=== PATIENT | male | born 1945 | race Caucasian/White ===

== ENCOUNTER 2017-07-13 11:55 | Inpatient (IN) | payer MEDICARE, MEDICAID ==
[~2017-07-13] VITALS: Ht 180.3 cm; Wt 146.1 kg
[2017-07-13 16:55] VITALS: BP 109/63
[2017-07-13] MEDS ORDERED: ACETAMINOPHEN 325 MG TABLET PO PRN (17:00)
[2017-07-13] MEDS ORDERED: DOCUSATE SODIUM 283 MG/5 ML MINI-ENEMA PR PRN (17:00)
[2017-07-13] MEDS ORDERED: ALBUTEROL SULFATE 2.5 MG/0.5 ML NEB SOLUTION NEB PRN (17:15)
[2017-07-13] MEDS ORDERED: MAGNESIUM HYDROXIDE SUSPENSION 30 ML UDCUP PO PRN (17:15)
[2017-07-13] MEDS ORDERED: IPRATROPIUM BROMIDE 0.5 MG/2.5 ML NEB SOLUTION NEB PRN (17:15)
[2017-07-13] MEDS: OXYGEN THERAPY IH SCH (20:00)
[2017-07-13 20:52] LABS: APPEARANCE,URINE TURBID (CLEAR); BILIRUBIN,URINE NEGATIVE (NEGATIVE); GLUCOSE, URINE (UA) NEGATIVE (NEGATIVE); KETONES,URINE NEGATIVE (NEGATIVE); LEUKOCYTE ESTERASE ,URINE LARGE (NEGATIVE); OCCULT BLOOD,URINE TRACE (NEGATIVE); PROTEIN,URINE POS 1+ (NEGATIVE)
[2017-07-13 20:59] LABS: BACTERIA,URINE Many /HPF (None Seen); NITRATE,URINE POSITIVE (NEGATIVE); SQUAMOUS EPITHELIAL CELL,UR Few /LPF (None Seen); WBC,URINE >100 /HPF (0-5)
[2017-07-13] MEDS ORDERED: DOCUSATE SODIUM 100 MG CAPSULE PO SCH (21:00)
[2017-07-13] MEDS: ATORVASTATIN CALCIUM 40 MG TABLET PO SCH (21:11)
[2017-07-13] MEDS: SENNA 187 MG TABLET PO SCH (21:11)
[2017-07-13] MEDS: LACTOBAC ACID/BULG/BIFID/THERM TABLET PO SCH (21:11)
[2017-07-13] MEDS: METOPROLOL TARTRATE 25 MG TABLET PO SCH (21:11)
[2017-07-13] MEDS: PANTOPRAZOLE SODIUM 40 MG DR TABLET PO SCH (21:11)
[2017-07-13] MEDS: MINERAL OIL/PETROLATUM,WHITE PF 3.5 GM OPHTHALMIC OINTMENT OU SCH (21:12)
[2017-07-13 22:15] VITALS: BP 115/62
[2017-07-13] MEDS: TERAZOSIN HCL 5 MG CAPSULE PO SCH (22:43)
[2017-07-13] MEDS: POTASSIUM PHOS/SODIUM PHOS MIXTURE 1 POWDER PACKET PO SCH (22:43)
[2017-07-14 00:44] VITALS: BP 122/67
[2017-07-14] MEDS ORDERED: PNEUMOCOCCAL VACCINE POLYVALENT 0.5 ML VIAL [PPSV23] IM ONE (02:15)
[2017-07-14 07:10] VITALS: BP 120/84
[2017-07-14 07:39] LABS: BASOPHILS % (AUTO) 0.4 % (0.0-2.0); HEMATOCRIT 34.5 % (41-53); HEMOGLOBIN 11.1 g/dL (13.5-17.5); LYMPHOCYTES # (AUTO) 1.1 K/uL (1.0-4.8); LYMPHOCYTES % (AUTO) 13.4 % (22.0-44.0); MEAN CORPUSCULAR HGB CONC 32.3 G/dL (31.0-37.0); MEAN CORPUSCULAR VOLUME 90 fL (80-100); MONOCYTES # (AUTO) 0.7 K/uL (0.1-1.0); MONOCYTES % (AUTO) 8.6 % (2.0-9.0); NEUTROPHILS % (AUTO) 75.6 % (40.0-70.0); PLATELET COUNT (AUTO) 155 K/uL (150-450); RED BLOOD CELL COUNT(AUTO) 3.84 MIL/uL (4.50-5.90); RED CELL DISTRIBUTION WIDTH 18.7 % (11.5-14.5)
[2017-07-14 07:55] LABS: ALANINE AMINOTRANSFERASE 44 U/L (12-78); ALBUMIN 2.5 g/dL (3.4-5.0); ALKALINE PHOSPHATASE 142 U/L (46-116); ANION GAP 2 mmol/L (8-16); ASPARTATE AMINOTRANSFERASE 28 U/L (15-37); BILIRUBIN,TOTAL 0.4 mg/dL (0.1-1.0); CALCIUM, TOTAL 8.9 mg/dL (8.8-10.5); CARBON DIOXIDE 36 mmol/L (22-29); CHLORIDE 105 mmol/L (98-107); CREATININE 0.69 mg/dL (0.60-1.30); GLOMERULAR FILTR. RATE CALC > 60 mL/min (>60); GLUCOSE,RANDOM 107 mg/dL (70-110); PHOSPHORUS 4.1 mg/dL (2.5-4.9); POTASSIUM 3.7 mmol/L (3.5-5.1); SODIUM SERUM 143 mmol/L (136-145); THYROID STIMULATING HORMONE 1.39 uIU/mL (0.36-3.74); UREA NITROGEN, BLOOD 18 mg/dL (7-18)
[2017-07-14] MEDS: DOCUSATE SODIUM 250 MG CAPSULE PO SCH ×3 (09:00→20:32)
[2017-07-14] MEDS: LACTOBAC ACID/BULG/BIFID/THERM TABLET PO SCH ×2 (09:01→20:32)
[2017-07-14] MEDS: POTASSIUM PHOS/SODIUM PHOS MIXTURE 1 POWDER PACKET PO SCH ×2 (09:01→20:31)
[2017-07-14] MEDS: OXYGEN THERAPY IH SCH ×2 (09:01→20:31)
[2017-07-14] MEDS: MINERAL OIL/PETROLATUM,WHITE PF 3.5 GM OPHTHALMIC OINTMENT OU SCH ×2 (09:01→20:32)
[2017-07-14] MEDS: AcetaZOLAMIDE 250 MG TABLET PO SCH (09:02)
[2017-07-14] MEDS: ASPIRIN 81 MG CHEWABLE TABLET PO SCH (09:02)
[2017-07-14] MEDS: FUROSEMIDE 40 MG TABLET PO SCH (09:02)
[2017-07-14] MEDS: PANTOPRAZOLE SODIUM 40 MG DR TABLET PO SCH ×2 (09:03→20:32)
[2017-07-14] MEDS: PredniSONE 5 MG TABLET PO SCH (09:03)
[2017-07-14] MEDS: FLUTICASONE/VILANTEROL 200-25 MCG/INH INHALER [14] IH SCH (09:03)
[2017-07-14] MEDS: METOPROLOL TARTRATE 25 MG TABLET PO SCH ×2 (09:03→20:32)
[2017-07-14] MEDS: CLOPIDOGREL BISULFATE 75 MG TABLET PO SCH (09:03)
[2017-07-14] MEDS: TAMSULOSIN HCL 0.4 MG CAPSULE PO SCH (09:03)
[2017-07-14] MEDS: TIOTROPIUM BROMIDE 18 MCG/INH HANDIHALER [5] IH SCH (09:04)
[2017-07-14 11:50] LABS: ABG A-A DIFF O2 96.6 mmHg (10-20.0); ABG BASE EXCESS 9.6 mmol/L (-2.0-3.0); ABG CARBOXYHEMOGLOBIN 0.8 % (0.0-1.5); ABG HCO3 31.5 mmol/L (22.0-26.0); ABG METHEMOGLOBIN 0.1 % (0.0-1.5); ABG OXYGEN CONTENT 15.9 mL/dL (15.0-23.0); ABG OXYGEN SATURATION 96.1 % (95.0-98.0); ABG OXYHEMOGLOBIN 95.2 % (94.0-100.0); ABG PCO2 64 mmHg (35-45); ABG PH 7.357 (7.35-7.450); ABG TOTAL HEMOGLOBIN 11.8 G/dL (12.0-18.0); PO2, ARTERIAL BG 85.8 mmHg (75.0-83.0); SOURCE, BLOOD GAS ARTERIAL; TEMPERATURE, FAHRENHEIT, BG 98.6 FAHREN (96.0-98.6)
[2017-07-14 11:51] LABS: SITE, BLOOD GAS LFT RADIAL
[2017-07-14 11:52] LABS: O2 DEVICE,BLOOD GAS CANNULA (ROOM AIR)
[2017-07-14] MEDS: ENOXAPARIN SODIUM 30 MG/0.3 ML PF SYRINGE SQ SCH ×2 (14:36→20:32)
[2017-07-14 15:53] VITALS: BP 114/68
[2017-07-14] MEDS: TERAZOSIN HCL 5 MG CAPSULE PO SCH (20:32)
[2017-07-14] MEDS: SENNA 187 MG TABLET PO SCH (20:32)
[2017-07-14] MEDS: ATORVASTATIN CALCIUM 40 MG TABLET PO SCH (20:32)
[2017-07-14 20:39] VITALS: BP 104/56
[2017-07-15] VITALS: BP 109/65
[2017-07-15 07:50] VITALS: BP 111/62
[2017-07-15] MEDS: OXYGEN THERAPY IH SCH ×2 (08:59→20:22)
[2017-07-15] MEDS: MINERAL OIL/PETROLATUM,WHITE PF 3.5 GM OPHTHALMIC OINTMENT OU SCH ×2 (09:00→20:23)
[2017-07-15] MEDS: CLOPIDOGREL BISULFATE 75 MG TABLET PO SCH (09:00)
[2017-07-15] MEDS: TIOTROPIUM BROMIDE 18 MCG/INH HANDIHALER [5] IH SCH (09:00)
[2017-07-15] MEDS: DOCUSATE SODIUM 250 MG CAPSULE PO SCH ×3 (09:00→20:23)
[2017-07-15] MEDS: LACTOBAC ACID/BULG/BIFID/THERM TABLET PO SCH ×2 (09:00→20:22)
[2017-07-15] MEDS: FLUTICASONE/VILANTEROL 200-25 MCG/INH INHALER [14] IH SCH (09:00)
[2017-07-15] MEDS: ENOXAPARIN SODIUM 30 MG/0.3 ML PF SYRINGE SQ SCH ×2 (09:00→20:22)
[2017-07-15] MEDS: POTASSIUM PHOS/SODIUM PHOS MIXTURE 1 POWDER PACKET PO SCH ×2 (09:01→20:22)
[2017-07-15] MEDS: AcetaZOLAMIDE 250 MG TABLET PO SCH (09:01)
[2017-07-15] MEDS: ASPIRIN 81 MG CHEWABLE TABLET PO SCH (09:01)
[2017-07-15] MEDS: FUROSEMIDE 40 MG TABLET PO SCH (09:01)
[2017-07-15] MEDS: PANTOPRAZOLE SODIUM 40 MG DR TABLET PO SCH ×2 (09:01→20:23)
[2017-07-15] MEDS: METOPROLOL TARTRATE 25 MG TABLET PO SCH ×2 (09:01→20:23)
[2017-07-15] MEDS: TAMSULOSIN HCL 0.4 MG CAPSULE PO SCH (09:01)
[2017-07-15] MEDS: PredniSONE 5 MG TABLET PO SCH (09:01)
[2017-07-15 15:49] VITALS: BP 108/77
[2017-07-15] MEDS: ATORVASTATIN CALCIUM 40 MG TABLET PO SCH (20:22)
[2017-07-15] MEDS: SENNA 187 MG TABLET PO SCH (20:22)
[2017-07-15] MEDS: TERAZOSIN HCL 5 MG CAPSULE PO SCH (20:22)
[2017-07-16 00:15] VITALS: BP 110/67
[2017-07-16 07:10] VITALS: BP 104/66
[2017-07-16] MEDS: TIOTROPIUM BROMIDE 18 MCG/INH HANDIHALER [5] IH SCH (08:08)
[2017-07-16] MEDS: OXYGEN THERAPY IH SCH ×2 (08:08→21:33)
[2017-07-16] MEDS: ENOXAPARIN SODIUM 30 MG/0.3 ML PF SYRINGE SQ SCH ×2 (08:08→21:42)
[2017-07-16] MEDS: AcetaZOLAMIDE 250 MG TABLET PO SCH (08:08)
[2017-07-16] MEDS: METOPROLOL TARTRATE 25 MG TABLET PO SCH ×2 (08:08→21:43)
[2017-07-16] MEDS: TAMSULOSIN HCL 0.4 MG CAPSULE PO SCH (08:09)
[2017-07-16] MEDS: FUROSEMIDE 40 MG TABLET PO SCH (08:09)
[2017-07-16] MEDS: MINERAL OIL/PETROLATUM,WHITE PF 3.5 GM OPHTHALMIC OINTMENT OU SCH ×2 (08:09→21:43)
[2017-07-16] MEDS: PANTOPRAZOLE SODIUM 40 MG DR TABLET PO SCH ×2 (08:09→21:42)
[2017-07-16] MEDS: LACTOBAC ACID/BULG/BIFID/THERM TABLET PO SCH ×2 (08:09→21:43)
[2017-07-16] MEDS: POTASSIUM PHOS/SODIUM PHOS MIXTURE 1 POWDER PACKET PO SCH ×2 (08:09→21:43)
[2017-07-16] MEDS: ASPIRIN 81 MG CHEWABLE TABLET PO SCH (08:09)
[2017-07-16] MEDS: CLOPIDOGREL BISULFATE 75 MG TABLET PO SCH (08:09)
[2017-07-16] MEDS: FLUTICASONE/VILANTEROL 200-25 MCG/INH INHALER [14] IH SCH (08:10)
[2017-07-16] MEDS: PredniSONE 5 MG TABLET PO SCH (08:10)
[2017-07-16] MEDS: DOCUSATE SODIUM 250 MG CAPSULE PO SCH ×2 (08:12→21:00)
[2017-07-16 16:26] VITALS: BP 118/59
[2017-07-16] MEDS: WATER IV SCH (17:16)
[2017-07-16] MEDS: CEFOTETAN DISODIUM IV SCH (17:16)
[2017-07-16] MEDS: DEXTROSE 5% IV SCH (17:16)
[2017-07-16] MEDS ORDERED: CEFOTETAN DISODIUM IV SCH (18:00)
[2017-07-16] MEDS ORDERED: WATER IV SCH (18:00)
[2017-07-16] MEDS ORDERED: DEXTROSE 5% IV SCH (18:00)
[2017-07-16] MEDS: SENNA 187 MG TABLET PO SCH (21:00)
[2017-07-16] MEDS: ATORVASTATIN CALCIUM 40 MG TABLET PO SCH (21:42)
[2017-07-16 21:43] VITALS: BP 119/60
[2017-07-16] MEDS: TERAZOSIN HCL 5 MG CAPSULE PO SCH (21:43)
[2017-07-16] MEDS: 0.9% SODIUM CHLORIDE 10 ML SYRINGE IVP SCH (23:20)
[2017-07-17 00:41] VITALS: BP 107/55
[2017-07-17] MEDS: CEFOTETAN DISODIUM IV SCH ×2 (05:58→17:44)
[2017-07-17] MEDS: DEXTROSE 5% IV SCH ×2 (05:58→17:44)
[2017-07-17] MEDS: WATER IV SCH ×2 (05:58→17:44)
[2017-07-17 08:07] VITALS: BP 116/68
[2017-07-17] MEDS: 0.9% SODIUM CHLORIDE 10 ML SYRINGE IVP SCH ×3 (08:26→23:21)
[2017-07-17] MEDS: LACTOBAC ACID/BULG/BIFID/THERM TABLET PO SCH ×2 (08:27→20:09)
[2017-07-17] MEDS: CLOPIDOGREL BISULFATE 75 MG TABLET PO SCH (08:27)
[2017-07-17] MEDS: ASPIRIN 81 MG CHEWABLE TABLET PO SCH (08:27)
[2017-07-17] MEDS: POTASSIUM PHOS/SODIUM PHOS MIXTURE 1 POWDER PACKET PO SCH ×2 (08:27→20:09)
[2017-07-17] MEDS: MINERAL OIL/PETROLATUM,WHITE PF 3.5 GM OPHTHALMIC OINTMENT OU SCH ×2 (08:27→20:10)
[2017-07-17] MEDS: PredniSONE 5 MG TABLET PO SCH (08:27)
[2017-07-17] MEDS: METOPROLOL TARTRATE 25 MG TABLET PO SCH ×2 (08:28→20:09)
[2017-07-17] MEDS: DOCUSATE SODIUM 250 MG CAPSULE PO SCH ×3 (08:28→20:08)
[2017-07-17] MEDS: AcetaZOLAMIDE 250 MG TABLET PO SCH (08:28)
[2017-07-17] MEDS: FUROSEMIDE 40 MG TABLET PO SCH (08:29)
[2017-07-17] MEDS: TIOTROPIUM BROMIDE 18 MCG/INH HANDIHALER [5] IH SCH (08:29)
[2017-07-17] MEDS: PANTOPRAZOLE SODIUM 40 MG DR TABLET PO SCH ×2 (08:29→20:09)
[2017-07-17] MEDS: TAMSULOSIN HCL 0.4 MG CAPSULE PO SCH (08:29)
[2017-07-17] MEDS: ENOXAPARIN SODIUM 30 MG/0.3 ML PF SYRINGE SQ SCH ×2 (08:29→20:08)
[2017-07-17] MEDS: FLUTICASONE/VILANTEROL 200-25 MCG/INH INHALER [14] IH SCH (08:30)
[2017-07-17] MEDS: OXYGEN THERAPY IH SCH ×2 (08:30→20:09)
[2017-07-17 15:38] VITALS: BP 95/54
[2017-07-17] MEDS: SENNA 187 MG TABLET PO SCH (20:08)
[2017-07-17] MEDS: TERAZOSIN HCL 5 MG CAPSULE PO SCH (20:09)
[2017-07-17] MEDS: ATORVASTATIN CALCIUM 40 MG TABLET PO SCH (20:09)
[2017-07-17 20:16] VITALS: BP 134/74
[2017-07-17 23:30] VITALS: BP 106/58
[2017-07-18] MEDS: DEXTROSE 5% IV SCH ×2 (05:50→17:25)
[2017-07-18] MEDS: WATER IV SCH ×2 (05:50→17:25)
[2017-07-18] MEDS: CEFOTETAN DISODIUM IV SCH ×2 (05:50→17:25)
[2017-07-18 08:30] VITALS: BP 109/43
[2017-07-18] MEDS: OXYGEN THERAPY IH SCH ×2 (08:51→20:37)
[2017-07-18] MEDS: 0.9% SODIUM CHLORIDE 10 ML SYRINGE IVP SCH ×3 (08:51→23:32)
[2017-07-18] MEDS: MINERAL OIL/PETROLATUM,WHITE PF 3.5 GM OPHTHALMIC OINTMENT OU SCH ×2 (08:52→20:38)
[2017-07-18] MEDS: METOPROLOL TARTRATE 25 MG TABLET PO SCH ×2 (08:52→20:37)
[2017-07-18] MEDS: TAMSULOSIN HCL 0.4 MG CAPSULE PO SCH (08:52)
[2017-07-18] MEDS: TIOTROPIUM BROMIDE 18 MCG/INH HANDIHALER [5] IH SCH (08:52)
[2017-07-18] MEDS: AcetaZOLAMIDE 250 MG TABLET PO SCH (08:53)
[2017-07-18] MEDS: CLOPIDOGREL BISULFATE 75 MG TABLET PO SCH (08:53)
[2017-07-18] MEDS: ASPIRIN 81 MG CHEWABLE TABLET PO SCH (08:53)
[2017-07-18] MEDS: POTASSIUM PHOS/SODIUM PHOS MIXTURE 1 POWDER PACKET PO SCH ×2 (08:53→20:38)
[2017-07-18] MEDS: LACTOBAC ACID/BULG/BIFID/THERM TABLET PO SCH ×2 (08:53→20:37)
[2017-07-18] MEDS: FUROSEMIDE 40 MG TABLET PO SCH (08:53)
[2017-07-18] MEDS: PredniSONE 5 MG TABLET PO SCH (08:53)
[2017-07-18] MEDS: PANTOPRAZOLE SODIUM 40 MG DR TABLET PO SCH ×2 (08:53→20:38)
[2017-07-18] MEDS: ENOXAPARIN SODIUM 30 MG/0.3 ML PF SYRINGE SQ SCH ×2 (08:54→20:39)
[2017-07-18] MEDS: DOCUSATE SODIUM 250 MG CAPSULE PO SCH ×2 (08:54→20:37)
[2017-07-18] MEDS: FLUTICASONE/VILANTEROL 200-25 MCG/INH INHALER [14] IH SCH (08:55)
[2017-07-18 15:25] VITALS: BP 100/66
[2017-07-18 18:13] LABS: C.DIFF GDH ANTIGEN, Stool Negative (Negative); C.DIFF TOXINS A&B, Stool Negative (Negative)
[2017-07-18] MEDS: TERAZOSIN HCL 5 MG CAPSULE PO SCH (20:37)
[2017-07-18] MEDS: ATORVASTATIN CALCIUM 40 MG TABLET PO SCH (20:38)
[2017-07-18] MEDS: SENNA 187 MG TABLET PO SCH (20:38)
[2017-07-18 23:58] VITALS: BP 109/54
[2017-07-19] MEDS: CEFOTETAN DISODIUM IV SCH ×2 (05:52→18:39)
[2017-07-19] MEDS: DEXTROSE 5% IV SCH ×2 (05:52→18:39)
[2017-07-19] MEDS: WATER IV SCH ×2 (05:52→18:39)
[2017-07-19 07:45] VITALS: BP 92/70
[2017-07-19] MEDS: METOPROLOL TARTRATE 25 MG TABLET PO SCH ×2 (08:26→20:03)
[2017-07-19] MEDS: POTASSIUM PHOS/SODIUM PHOS MIXTURE 1 POWDER PACKET PO SCH ×2 (08:33→20:02)
[2017-07-19] MEDS: AcetaZOLAMIDE 250 MG TABLET PO SCH (08:34)
[2017-07-19] MEDS: FUROSEMIDE 40 MG TABLET PO SCH (08:34)
[2017-07-19] MEDS: LACTOBAC ACID/BULG/BIFID/THERM TABLET PO SCH ×3 (08:34→20:03)
[2017-07-19] MEDS: MINERAL OIL/PETROLATUM,WHITE PF 3.5 GM OPHTHALMIC OINTMENT OU SCH ×2 (08:34→20:03)
[2017-07-19] MEDS: PredniSONE 5 MG TABLET PO SCH (08:34)
[2017-07-19] MEDS: PANTOPRAZOLE SODIUM 40 MG DR TABLET PO SCH ×2 (08:34→20:04)
[2017-07-19] MEDS: CLOPIDOGREL BISULFATE 75 MG TABLET PO SCH (08:35)
[2017-07-19] MEDS: TAMSULOSIN HCL 0.4 MG CAPSULE PO SCH (08:35)
[2017-07-19] MEDS: FLUTICASONE/VILANTEROL 200-25 MCG/INH INHALER [14] IH SCH (08:35)
[2017-07-19] MEDS: ASPIRIN 81 MG CHEWABLE TABLET PO SCH (08:35)
[2017-07-19] MEDS: TIOTROPIUM BROMIDE 18 MCG/INH HANDIHALER [5] IH SCH (08:35)
[2017-07-19] MEDS: ENOXAPARIN SODIUM 30 MG/0.3 ML PF SYRINGE SQ SCH ×2 (08:35→20:03)
[2017-07-19] MEDS: 0.9% SODIUM CHLORIDE 10 ML SYRINGE IVP SCH ×3 (08:36→23:15)
[2017-07-19] MEDS: OXYGEN THERAPY IH SCH ×2 (08:36→20:02)
[2017-07-19] MEDS: DOCUSATE SODIUM 250 MG CAPSULE PO SCH ×3 (08:37→20:04)
[2017-07-19 15:30] VITALS: BP 121/96
[2017-07-19] MEDS: ATORVASTATIN CALCIUM 40 MG TABLET PO SCH (20:03)
[2017-07-19] MEDS: TERAZOSIN HCL 5 MG CAPSULE PO SCH (20:03)
[2017-07-19] MEDS: SENNA 187 MG TABLET PO SCH (20:04)
[2017-07-19 23:42] VITALS: BP 108/70
[2017-07-20] MEDS: CEFOTETAN DISODIUM IV SCH ×2 (05:48→17:11)
[2017-07-20] MEDS: DEXTROSE 5% IV SCH ×2 (05:48→17:11)
[2017-07-20] MEDS: WATER IV SCH ×2 (05:48→17:11)
[2017-07-20 07:53] VITALS: BP 99/52
[2017-07-20] MEDS: OXYGEN THERAPY IH SCH ×2 (08:35→20:06)
[2017-07-20] MEDS: 0.9% SODIUM CHLORIDE 10 ML SYRINGE IVP SCH ×3 (08:35→23:19)
[2017-07-20] MEDS: LACTOBAC ACID/BULG/BIFID/THERM TABLET PO SCH ×3 (08:36→20:06)
[2017-07-20] MEDS: POTASSIUM PHOS/SODIUM PHOS MIXTURE 1 POWDER PACKET PO SCH ×2 (08:36→20:07)
[2017-07-20] MEDS: AcetaZOLAMIDE 250 MG TABLET PO SCH (08:36)
[2017-07-20] MEDS: ASPIRIN 81 MG CHEWABLE TABLET PO SCH (08:36)
[2017-07-20] MEDS: FUROSEMIDE 40 MG TABLET PO SCH (08:36)
[2017-07-20] MEDS: PANTOPRAZOLE SODIUM 40 MG DR TABLET PO SCH ×2 (08:36→20:07)
[2017-07-20] MEDS: PredniSONE 5 MG TABLET PO SCH (08:36)
[2017-07-20] MEDS: TIOTROPIUM BROMIDE 18 MCG/INH HANDIHALER [5] IH SCH (08:37)
[2017-07-20] MEDS: TAMSULOSIN HCL 0.4 MG CAPSULE PO SCH (08:37)
[2017-07-20] MEDS: CLOPIDOGREL BISULFATE 75 MG TABLET PO SCH (08:37)
[2017-07-20] MEDS: ENOXAPARIN SODIUM 30 MG/0.3 ML PF SYRINGE SQ SCH ×2 (08:41→20:06)
[2017-07-20] MEDS: MINERAL OIL/PETROLATUM,WHITE PF 3.5 GM OPHTHALMIC OINTMENT OU SCH ×2 (08:42→20:07)
[2017-07-20] MEDS: METOPROLOL TARTRATE 25 MG TABLET PO SCH ×2 (08:42→20:12)
[2017-07-20] MEDS: DOCUSATE SODIUM 250 MG CAPSULE PO SCH ×2 (09:00→20:18)
[2017-07-20 15:31] VITALS: BP 121/66
[2017-07-20] MEDS: MetroNIDAZOLE 500 MG TABLET PO SCH ×2 (15:41→20:07)
[2017-07-20 19:59] VITALS: BP 114/64
[2017-07-20] MEDS: TERAZOSIN HCL 5 MG CAPSULE PO SCH (20:07)
[2017-07-20] MEDS: ATORVASTATIN CALCIUM 40 MG TABLET PO SCH (20:07)
[2017-07-20] MEDS: SENNA 187 MG TABLET PO SCH (20:18)
[2017-07-20 23:29] VITALS: BP 101/51
[2017-07-21] MEDS: DEXTROSE 5% IV SCH ×2 (05:16→17:52)
[2017-07-21] MEDS: WATER IV SCH ×2 (05:16→17:52)
[2017-07-21] MEDS: CEFOTETAN DISODIUM IV SCH ×2 (05:16→17:52)
[2017-07-21 07:10] VITALS: BP 116/73
[2017-07-21] MEDS: OXYGEN THERAPY IH SCH ×2 (08:23→20:06)
[2017-07-21] MEDS: TIOTROPIUM BROMIDE 18 MCG/INH HANDIHALER [5] IH SCH (08:24)
[2017-07-21] MEDS: 0.9% SODIUM CHLORIDE 10 ML SYRINGE IVP SCH ×3 (08:24→23:39)
[2017-07-21] MEDS: ENOXAPARIN SODIUM 30 MG/0.3 ML PF SYRINGE SQ SCH ×2 (08:25→20:07)
[2017-07-21] MEDS: LACTOBAC ACID/BULG/BIFID/THERM TABLET PO SCH ×3 (08:26→20:08)
[2017-07-21] MEDS: PredniSONE 5 MG TABLET PO SCH (08:26)
[2017-07-21] MEDS: METOPROLOL TARTRATE 25 MG TABLET PO SCH ×2 (08:26→20:08)
[2017-07-21] MEDS: ASPIRIN 81 MG CHEWABLE TABLET PO SCH (08:26)
[2017-07-21] MEDS: MINERAL OIL/PETROLATUM,WHITE PF 3.5 GM OPHTHALMIC OINTMENT OU SCH ×2 (08:26→20:07)
[2017-07-21] MEDS: FUROSEMIDE 40 MG TABLET PO SCH (08:26)
[2017-07-21] MEDS: CLOPIDOGREL BISULFATE 75 MG TABLET PO SCH (08:26)
[2017-07-21] MEDS: TAMSULOSIN HCL 0.4 MG CAPSULE PO SCH (08:26)
[2017-07-21] MEDS: MetroNIDAZOLE 500 MG TABLET PO SCH ×3 (08:26→20:08)
[2017-07-21] MEDS: POTASSIUM PHOS/SODIUM PHOS MIXTURE 1 POWDER PACKET PO SCH ×2 (08:26→20:07)
[2017-07-21] MEDS: AcetaZOLAMIDE 250 MG TABLET PO SCH (08:26)
[2017-07-21] MEDS: PANTOPRAZOLE SODIUM 40 MG DR TABLET PO SCH ×2 (08:26→20:07)
[2017-07-21 15:27] VITALS: BP 95/54
[2017-07-21] MEDS: ATORVASTATIN CALCIUM 40 MG TABLET PO SCH (20:07)
[2017-07-21] MEDS: TERAZOSIN HCL 5 MG CAPSULE PO SCH (20:07)
[2017-07-21 23:54] VITALS: BP 93/61
[2017-07-22] MEDS: WATER IV SCH (06:12)
[2017-07-22] MEDS: CEFOTETAN DISODIUM IV SCH (06:12)
[2017-07-22] MEDS: DEXTROSE 5% IV SCH (06:12)
[2017-07-22 06:57] VITALS: BP 97/69
[2017-07-22 07:28] VITALS: BP 100/49
[2017-07-22] MEDS: OXYGEN THERAPY IH SCH ×2 (08:13→20:15)
[2017-07-22] MEDS: 0.9% SODIUM CHLORIDE 10 ML SYRINGE IVP SCH ×3 (08:13→23:10)
[2017-07-22] MEDS: AcetaZOLAMIDE 250 MG TABLET PO SCH (08:14)
[2017-07-22] MEDS: MetroNIDAZOLE 500 MG TABLET PO SCH ×3 (08:14→20:16)
[2017-07-22] MEDS: LACTOBAC ACID/BULG/BIFID/THERM TABLET PO SCH ×3 (08:14→20:16)
[2017-07-22] MEDS: TAMSULOSIN HCL 0.4 MG CAPSULE PO SCH (08:14)
[2017-07-22] MEDS: ENOXAPARIN SODIUM 30 MG/0.3 ML PF SYRINGE SQ SCH ×2 (08:14→20:16)
[2017-07-22] MEDS: MINERAL OIL/PETROLATUM,WHITE PF 3.5 GM OPHTHALMIC OINTMENT OU SCH ×2 (08:15→20:16)
[2017-07-22] MEDS: POTASSIUM PHOS/SODIUM PHOS MIXTURE 1 POWDER PACKET PO SCH ×2 (08:15→20:16)
[2017-07-22] MEDS: TIOTROPIUM BROMIDE 18 MCG/INH HANDIHALER [5] IH SCH (08:15)
[2017-07-22] MEDS: ASPIRIN 81 MG CHEWABLE TABLET PO SCH (08:15)
[2017-07-22] MEDS: PANTOPRAZOLE SODIUM 40 MG DR TABLET PO SCH ×2 (08:15→20:16)
[2017-07-22] MEDS: PredniSONE 5 MG TABLET PO SCH (08:15)
[2017-07-22] MEDS: FUROSEMIDE 40 MG TABLET PO SCH (08:15)
[2017-07-22] MEDS: CLOPIDOGREL BISULFATE 75 MG TABLET PO SCH (08:15)
[2017-07-22] MEDS: METOPROLOL TARTRATE 25 MG TABLET PO SCH ×2 (08:16→20:16)
[2017-07-22 15:21] VITALS: BP 110/79
[2017-07-22 15:57] LABS: APPEARANCE,URINE CLEAR (CLEAR); BILIRUBIN,URINE NEGATIVE (NEGATIVE); GLUCOSE, URINE (UA) NEGATIVE (NEGATIVE); KETONES,URINE NEGATIVE (NEGATIVE); LEUKOCYTE ESTERASE ,URINE NEGATIVE (NEGATIVE); NITRATE,URINE NEGATIVE (NEGATIVE); OCCULT BLOOD,URINE NEGATIVE (NEGATIVE); PH,URINE 7.5 (5.0-8.0); PROTEIN,URINE NEGATIVE (NEGATIVE); UROBILINOGEN,URINE 0.2 mg/dL (<=1.0)
[2017-07-22 16:34] LABS: BACTERIA,URINE Few /HPF (None Seen); RBC,URINE 0-2 /HPF (0-2)
[2017-07-22 16:35] LABS: RENAL EPITHELIAL CELLS,URINE Rare /LPF (None Seen); SQUAMOUS EPITHELIAL CELL,UR Few /LPF (None Seen)
[2017-07-22] MEDS ORDERED: BUDE10.2 IH (16:53)
[2017-07-22] MEDS ORDERED: ALBU8.5H8 IH (16:53)
[2017-07-22] MEDS ORDERED: ASPI-1182 PO (16:53)
[2017-07-22] MEDS ORDERED: FURO20 PO (16:53)
[2017-07-22] MEDS ORDERED: ZOLP5 PO (16:53)
[2017-07-22] MEDS ORDERED: RIVA20TA PO (16:53)
[2017-07-22] MEDS ORDERED: ALBU8HFA IH (16:53)
[2017-07-22] MEDS ORDERED: AZEL137S8 NASAL (16:53)
[2017-07-22] MEDS ORDERED: TIOT185 IH (16:53)
[2017-07-22 20:08] VITALS: BP 101/53
[2017-07-22] MEDS: ATORVASTATIN CALCIUM 40 MG TABLET PO SCH (20:16)
[2017-07-22] MEDS: TERAZOSIN HCL 5 MG CAPSULE PO SCH (20:16)
[2017-07-22 23:39] VITALS: BP 104/56
[2017-07-22] MEDS ORDERED: DEXTROSE 5% IV SCH (23:59)
[2017-07-22] MEDS ORDERED: WATER IV SCH (23:59)
[2017-07-22] MEDS ORDERED: CEFOTETAN DISODIUM IV SCH (23:59)
[2017-07-23 06:33] LABS: BASOPHILS % (AUTO) 0.6 % (0.0-2.0); EOSINOPHILS % (AUTO) 1.3 % (1.0-6.0); HEMATOCRIT 31.5 % (41-53); HEMOGLOBIN 10.2 g/dL (13.5-17.5); LYMPHOCYTES # (AUTO) 1.4 K/uL (1.0-4.8); LYMPHOCYTES % (AUTO) 13.4 % (22.0-44.0); MEAN CORPUSCULAR HEMOGLOBIN 28.9 pg (26.0-34.0); MEAN CORPUSCULAR HGB CONC 32.4 G/dL (31.0-37.0); MEAN CORPUSCULAR VOLUME 89 fL (80-100); MONOCYTES # (AUTO) 0.9 K/uL (0.1-1.0); MONOCYTES % (AUTO) 8.9 % (2.0-9.0); NEUTROPHILS % (AUTO) 75.8 % (40.0-70.0); PLATELET COUNT (AUTO) 155 K/uL (150-450); RED BLOOD CELL COUNT(AUTO) 3.54 MIL/uL (4.50-5.90); RED CELL DISTRIBUTION WIDTH 18.9 % (11.5-14.5)
[2017-07-23 07:01] LABS: ALANINE AMINOTRANSFERASE 28 U/L (12-78); ALKALINE PHOSPHATASE 95 U/L (46-116); ANION GAP 2 mmol/L (8-16); ASPARTATE AMINOTRANSFERASE 27 U/L (15-37); BILIRUBIN,TOTAL 0.2 mg/dL (0.1-1.0); CALCIUM, TOTAL 8.6 mg/dL (8.8-10.5); CARBON DIOXIDE 35 mmol/L (22-29); CHLORIDE 106 mmol/L (98-107); CREATININE 0.81 mg/dL (0.60-1.30); GLOMERULAR FILTR. RATE CALC > 60 mL/min (>60); GLUCOSE,RANDOM 112 mg/dL (70-110); POTASSIUM 4.1 mmol/L (3.5-5.1); SODIUM SERUM 143 mmol/L (136-145); TOTAL PROTEIN, SERUM 5.8 g/dL (6.4-8.2); UREA NITROGEN, BLOOD 18 mg/dL (7-18)
[2017-07-23 07:05] VITALS: BP 95/58
[2017-07-23 07:23] LABS: ALBUMIN 2.3 g/dL (3.4-5.0)
[2017-07-23] MEDS: METOPROLOL TARTRATE 25 MG TABLET PO SCH ×2 (09:00→21:00)
[2017-07-23] MEDS: PredniSONE 5 MG TABLET PO SCH (09:36)
[2017-07-23] MEDS: MetroNIDAZOLE 500 MG TABLET PO SCH ×3 (09:37→20:40)
[2017-07-23] MEDS: ASPIRIN 81 MG CHEWABLE TABLET PO SCH (09:37)
[2017-07-23] MEDS: AcetaZOLAMIDE 250 MG TABLET PO SCH (09:37)
[2017-07-23] MEDS: CLOPIDOGREL BISULFATE 75 MG TABLET PO SCH (09:38)
[2017-07-23] MEDS: LACTOBAC ACID/BULG/BIFID/THERM TABLET PO SCH ×3 (09:38→20:40)
[2017-07-23] MEDS: POTASSIUM PHOS/SODIUM PHOS MIXTURE 1 POWDER PACKET PO SCH ×2 (09:38→20:40)
[2017-07-23] MEDS: TIOTROPIUM BROMIDE 18 MCG/INH HANDIHALER [5] IH SCH (09:38)
[2017-07-23] MEDS: PANTOPRAZOLE SODIUM 40 MG DR TABLET PO SCH ×2 (09:38→20:41)
[2017-07-23] MEDS: MINERAL OIL/PETROLATUM,WHITE PF 3.5 GM OPHTHALMIC OINTMENT OU SCH ×2 (09:40→20:41)
[2017-07-23] MEDS: FUROSEMIDE 40 MG TABLET PO SCH (09:41)
[2017-07-23] MEDS: ENOXAPARIN SODIUM 30 MG/0.3 ML PF SYRINGE SQ SCH ×2 (09:42→20:40)
[2017-07-23] MEDS: OXYGEN THERAPY IH SCH ×2 (12:48→20:40)
[2017-07-23 15:09] VITALS: BP 100/58
[2017-07-23] MEDS: CHOLESTYRAMINE PO SCH ×2 (15:41→20:40)
[2017-07-23] MEDS: SUCROSE PO SCH ×2 (15:41→20:40)
[2017-07-23] MEDS: TERAZOSIN HCL 5 MG CAPSULE PO SCH (20:40)
[2017-07-23] MEDS: TAMSULOSIN HCL 0.4 MG CAPSULE PO SCH (20:41)
[2017-07-23] MEDS: ATORVASTATIN CALCIUM 40 MG TABLET PO SCH (20:41)
[2017-07-23 21:03] VITALS: BP 100/51
[2017-07-24 00:39] VITALS: BP 133/81
[2017-07-24 07:45] VITALS: BP 95/45
[2017-07-24] MEDS: OXYGEN THERAPY IH SCH ×2 (08:07→20:04)
[2017-07-24] MEDS: CLOPIDOGREL BISULFATE 75 MG TABLET PO SCH (08:08)
[2017-07-24] MEDS: POTASSIUM PHOS/SODIUM PHOS MIXTURE 1 POWDER PACKET PO SCH ×2 (08:12→20:04)
[2017-07-24] MEDS: ASPIRIN 81 MG CHEWABLE TABLET PO SCH (08:12)
[2017-07-24] MEDS: SUCROSE PO SCH ×3 (08:12→20:04)
[2017-07-24] MEDS: CHOLESTYRAMINE PO SCH ×3 (08:12→20:04)
[2017-07-24] MEDS: PANTOPRAZOLE SODIUM 40 MG DR TABLET PO SCH ×2 (08:12→20:05)
[2017-07-24] MEDS: AcetaZOLAMIDE 250 MG TABLET PO SCH (08:13)
[2017-07-24] MEDS: TIOTROPIUM BROMIDE 18 MCG/INH HANDIHALER [5] IH SCH (08:13)
[2017-07-24] MEDS: MINERAL OIL/PETROLATUM,WHITE PF 3.5 GM OPHTHALMIC OINTMENT OU SCH ×2 (08:13→20:06)
[2017-07-24] MEDS: FUROSEMIDE 40 MG TABLET PO SCH (08:13)
[2017-07-24] MEDS: ENOXAPARIN SODIUM 30 MG/0.3 ML PF SYRINGE SQ SCH ×2 (08:13→20:04)
[2017-07-24] MEDS: PredniSONE 5 MG TABLET PO SCH (08:13)
[2017-07-24] MEDS: MetroNIDAZOLE 500 MG TABLET PO SCH ×3 (08:14→20:05)
[2017-07-24] MEDS: METOPROLOL TARTRATE 25 MG TABLET PO SCH ×2 (08:14→20:05)
[2017-07-24] MEDS: LACTOBAC ACID/BULG/BIFID/THERM TABLET PO SCH ×3 (08:14→20:05)
[2017-07-24] MEDS: DICLOFENAC SODIUM 1% 100 GM GEL [2GM] TP SCH ×2 (09:11→20:04)
[2017-07-24 12:15] VITALS: BP 99/73
[2017-07-24 12:30] VITALS: BP 123/82
[2017-07-24 15:20] VITALS: BP 114/53
[2017-07-24 20:00] VITALS: BP 126/84
[2017-07-24] MEDS: ATORVASTATIN CALCIUM 40 MG TABLET PO SCH (20:05)
[2017-07-24] MEDS: TERAZOSIN HCL 5 MG CAPSULE PO SCH (20:05)
[2017-07-24] MEDS: TAMSULOSIN HCL 0.4 MG CAPSULE PO SCH (20:05)
[2017-07-24] MEDS: HYDROCORTISONE 1% 30 GM OINTMENT TP SCH (21:22)
[2017-07-25 03:05] VITALS: BP 131/55
[2017-07-25 08:30] VITALS: BP 130/92
[2017-07-25] MEDS: ENOXAPARIN SODIUM 30 MG/0.3 ML PF SYRINGE SQ SCH ×2 (09:52→20:00)
[2017-07-25] MEDS: POTASSIUM PHOS/SODIUM PHOS MIXTURE 1 POWDER PACKET PO SCH ×2 (09:52→20:00)
[2017-07-25] MEDS: CHOLESTYRAMINE PO SCH ×3 (09:52→20:00)
[2017-07-25] MEDS: SUCROSE PO SCH ×3 (09:52→20:00)
[2017-07-25] MEDS: TIOTROPIUM BROMIDE 18 MCG/INH HANDIHALER [5] IH SCH (09:52)
[2017-07-25] MEDS: MINERAL OIL/PETROLATUM,WHITE PF 3.5 GM OPHTHALMIC OINTMENT OU SCH ×2 (09:53→20:00)
[2017-07-25] MEDS: DICLOFENAC SODIUM 1% 100 GM GEL [2GM] TP SCH ×2 (09:53→20:01)
[2017-07-25] MEDS: HYDROCORTISONE 1% 30 GM OINTMENT TP SCH ×2 (09:53→20:01)
[2017-07-25] MEDS: CLOPIDOGREL BISULFATE 75 MG TABLET PO SCH (09:55)
[2017-07-25] MEDS: PANTOPRAZOLE SODIUM 40 MG DR TABLET PO SCH ×2 (09:55→20:01)
[2017-07-25] MEDS: METOPROLOL TARTRATE 25 MG TABLET PO SCH ×2 (09:55→20:01)
[2017-07-25] MEDS: MetroNIDAZOLE 500 MG TABLET PO SCH ×3 (09:55→20:01)
[2017-07-25] MEDS: LACTOBAC ACID/BULG/BIFID/THERM TABLET PO SCH ×3 (09:55→20:01)
[2017-07-25] MEDS: FUROSEMIDE 40 MG TABLET PO SCH (09:55)
[2017-07-25] MEDS: PredniSONE 5 MG TABLET PO SCH (09:55)
[2017-07-25] MEDS: AcetaZOLAMIDE 250 MG TABLET PO SCH (09:55)
[2017-07-25] MEDS: ASPIRIN 81 MG CHEWABLE TABLET PO SCH (09:55)
[2017-07-25] MEDS: OXYGEN THERAPY IH SCH ×2 (09:55→20:02)
[2017-07-25 15:14] VITALS: BP 104/74
[2017-07-25 19:58] VITALS: BP 100/65
[2017-07-25] MEDS: TERAZOSIN HCL 5 MG CAPSULE PO SCH (20:01)
[2017-07-25] MEDS: TAMSULOSIN HCL 0.4 MG CAPSULE PO SCH (20:01)
[2017-07-25] MEDS: ATORVASTATIN CALCIUM 40 MG TABLET PO SCH (20:01)
[2017-07-26 01:05] VITALS: BP 115/71
[2017-07-26 06:03] LABS: BASOPHILS % (AUTO) 0.9 % (0.0-2.0); EOSINOPHILS % (AUTO) 1.7 % (1.0-6.0); HEMATOCRIT 31.2 % (41-53); HEMOGLOBIN 9.9 g/dL (13.5-17.5); LYMPHOCYTES # (AUTO) 1.4 K/uL (1.0-4.8); LYMPHOCYTES % (AUTO) 11.4 % (22.0-44.0); MEAN CORPUSCULAR HEMOGLOBIN 28.1 pg (26.0-34.0); MEAN CORPUSCULAR HGB CONC 31.8 G/dL (31.0-37.0); MEAN CORPUSCULAR VOLUME 88 fL (80-100); MONOCYTES # (AUTO) 0.9 K/uL (0.1-1.0); MONOCYTES % (AUTO) 7.3 % (2.0-9.0); NEUTROPHILS # (AUTO) 9.5 K/uL (1.8-7.7); NEUTROPHILS % (AUTO) 78.7 % (40.0-70.0); PLATELET COUNT (AUTO) 172 K/uL (150-450); RED BLOOD CELL COUNT(AUTO) 3.54 MIL/uL (4.50-5.90); RED CELL DISTRIBUTION WIDTH 18.6 % (11.5-14.5)
[2017-07-26 06:16] LABS: ANION GAP 3 mmol/L (8-16); CALCIUM, TOTAL 8.5 mg/dL (8.8-10.5); CARBON DIOXIDE 34 mmol/L (22-29); CHLORIDE 107 mmol/L (98-107); CREATININE 0.74 mg/dL (0.60-1.30); GLOMERULAR FILTR. RATE CALC > 60 mL/min (>60); GLUCOSE,RANDOM 103 mg/dL (70-110); POTASSIUM 4.8 mmol/L (3.5-5.1); SODIUM SERUM 144 mmol/L (136-145); UREA NITROGEN, BLOOD 16 mg/dL (7-18)
[2017-07-26 08:00] VITALS: BP 105/57
[2017-07-26] MEDS: OXYGEN THERAPY IH SCH ×2 (08:28→20:03)
[2017-07-26] MEDS: POTASSIUM PHOS/SODIUM PHOS MIXTURE 1 POWDER PACKET PO SCH ×2 (08:28→20:04)
[2017-07-26] MEDS: TIOTROPIUM BROMIDE 18 MCG/INH HANDIHALER [5] IH SCH (08:28)
[2017-07-26] MEDS: HYDROCORTISONE 1% 30 GM OINTMENT TP SCH (08:28)
[2017-07-26] MEDS: CLOPIDOGREL BISULFATE 75 MG TABLET PO SCH (08:29)
[2017-07-26] MEDS: PANTOPRAZOLE SODIUM 40 MG DR TABLET PO SCH ×2 (08:29→20:05)
[2017-07-26] MEDS: ENOXAPARIN SODIUM 30 MG/0.3 ML PF SYRINGE SQ SCH ×2 (08:29→20:05)
[2017-07-26] MEDS: ASPIRIN 81 MG CHEWABLE TABLET PO SCH (08:29)
[2017-07-26] MEDS: LACTOBAC ACID/BULG/BIFID/THERM TABLET PO SCH ×3 (08:29→20:04)
[2017-07-26] MEDS: MINERAL OIL/PETROLATUM,WHITE PF 3.5 GM OPHTHALMIC OINTMENT OU SCH ×2 (08:30→20:05)
[2017-07-26] MEDS: SUCROSE PO SCH ×3 (08:30→20:04)
[2017-07-26] MEDS: MetroNIDAZOLE 500 MG TABLET PO SCH ×3 (08:30→20:04)
[2017-07-26] MEDS: CHOLESTYRAMINE PO SCH ×3 (08:30→20:04)
[2017-07-26] MEDS: AcetaZOLAMIDE 250 MG TABLET PO SCH (08:30)
[2017-07-26] MEDS: DICLOFENAC SODIUM 1% 100 GM GEL [2GM] TP SCH ×2 (08:31→20:06)
[2017-07-26] MEDS: PredniSONE 5 MG TABLET PO SCH (08:33)
[2017-07-26] MEDS: METOPROLOL TARTRATE 25 MG TABLET PO SCH ×2 (08:35→20:47)
[2017-07-26] MEDS: FUROSEMIDE 40 MG TABLET PO SCH (08:35)
[2017-07-26] MEDS ORDERED: LOPERAMIDE HCL 2 MG CAPSULE PO PRN (14:30)
[2017-07-26 15:52] VITALS: BP 116/63
[2017-07-26] MEDS: TAMSULOSIN HCL 0.4 MG CAPSULE PO SCH (20:04)
[2017-07-26] MEDS: ATORVASTATIN CALCIUM 40 MG TABLET PO SCH (20:04)
[2017-07-26] MEDS: TERAZOSIN HCL 5 MG CAPSULE PO SCH (20:04)
[2017-07-26] MEDS: DESONIDE 0.05% 15 GM CREAM TP SCH (20:05)
[2017-07-26 20:35] LABS: ALANINE AMINOTRANSFERASE 25 U/L (12-78); ALBUMIN 2.5 g/dL (3.4-5.0); ALKALINE PHOSPHATASE 82 U/L (46-116); ANION GAP 5 mmol/L (8-16); ASPARTATE AMINOTRANSFERASE 25 U/L (15-37); BILIRUBIN,TOTAL 0.2 mg/dL (0.1-1.0); CALCIUM, TOTAL 8.7 mg/dL (8.8-10.5); CARBON DIOXIDE 33 mmol/L (22-29); CHLORIDE 106 mmol/L (98-107); CREATININE 0.91 mg/dL (0.60-1.30); GLOMERULAR FILTR. RATE CALC > 60 mL/min (>60); GLUCOSE,RANDOM 142 mg/dL (70-110); POTASSIUM 4.3 mmol/L (3.5-5.1); SODIUM SERUM 144 mmol/L (136-145); TOTAL PROTEIN, SERUM 6.1 g/dL (6.4-8.2); UREA NITROGEN, BLOOD 17 mg/dL (7-18)
[2017-07-26 21:09] VITALS: BP 115/50
[2017-07-27 00:22] VITALS: BP 124/90
[2017-07-27 06:44] VITALS: BP 90/59
[2017-07-27 07:28] VITALS: BP 126/72
[2017-07-27] MEDS: ENOXAPARIN SODIUM 30 MG/0.3 ML PF SYRINGE SQ SCH ×2 (08:09→21:03)
[2017-07-27] MEDS: AcetaZOLAMIDE 250 MG TABLET PO SCH (08:09)
[2017-07-27] MEDS: CLOPIDOGREL BISULFATE 75 MG TABLET PO SCH (08:10)
[2017-07-27] MEDS: LACTOBAC ACID/BULG/BIFID/THERM TABLET PO SCH ×3 (08:10→21:04)
[2017-07-27] MEDS: PANTOPRAZOLE SODIUM 40 MG DR TABLET PO SCH ×2 (08:10→21:05)
[2017-07-27] MEDS: MetroNIDAZOLE 500 MG TABLET PO SCH ×3 (08:10→21:04)
[2017-07-27] MEDS: ASPIRIN 81 MG CHEWABLE TABLET PO SCH (08:10)
[2017-07-27] MEDS: PredniSONE 5 MG TABLET PO SCH (08:10)
[2017-07-27] MEDS: SUCROSE PO SCH (08:11)
[2017-07-27] MEDS: CHOLESTYRAMINE PO SCH (08:11)
[2017-07-27] MEDS: TIOTROPIUM BROMIDE 18 MCG/INH HANDIHALER [5] IH SCH (08:11)
[2017-07-27] MEDS: MINERAL OIL/PETROLATUM,WHITE PF 3.5 GM OPHTHALMIC OINTMENT OU SCH ×2 (08:11→21:05)
[2017-07-27] MEDS: POTASSIUM PHOS/SODIUM PHOS MIXTURE 1 POWDER PACKET PO SCH ×2 (08:11→21:04)
[2017-07-27] MEDS: DICLOFENAC SODIUM 1% 100 GM GEL [2GM] TP SCH ×2 (08:11→21:04)
[2017-07-27] MEDS: DESONIDE 0.05% 15 GM CREAM TP SCH ×2 (08:12→21:04)
[2017-07-27] MEDS: FUROSEMIDE 40 MG TABLET PO SCH (08:14)
[2017-07-27] MEDS: METOPROLOL TARTRATE 25 MG TABLET PO SCH ×2 (08:16→21:04)
[2017-07-27] MEDS: OXYGEN THERAPY IH SCH ×2 (08:18→21:02)
[2017-07-27 15:33] VITALS: BP 124/60
[2017-07-27 21:01] VITALS: BP 107/60
[2017-07-27] MEDS: LACTULOSE 20 GM/30 ML SOLUTION UDCUP PO SCH (21:02)
[2017-07-27] MEDS: TAMSULOSIN HCL 0.4 MG CAPSULE PO SCH (21:04)
[2017-07-27] MEDS: TERAZOSIN HCL 5 MG CAPSULE PO SCH (21:04)
[2017-07-27] MEDS: ATORVASTATIN CALCIUM 40 MG TABLET PO SCH (21:04)
[2017-07-27 23:53] VITALS: BP 108/58
[2017-07-28 07:47] VITALS: BP 96/44
[2017-07-28] MEDS: ASPIRIN 81 MG CHEWABLE TABLET PO SCH (07:53)
[2017-07-28] MEDS: POTASSIUM PHOS/SODIUM PHOS MIXTURE 1 POWDER PACKET PO SCH ×2 (07:53→20:18)
[2017-07-28] MEDS: PredniSONE 5 MG TABLET PO SCH (07:53)
[2017-07-28] MEDS: TIOTROPIUM BROMIDE 18 MCG/INH HANDIHALER [5] IH SCH (07:53)
[2017-07-28] MEDS: CLOPIDOGREL BISULFATE 75 MG TABLET PO SCH (07:53)
[2017-07-28] MEDS: DICLOFENAC SODIUM 1% 100 GM GEL [2GM] TP SCH ×2 (07:53→20:19)
[2017-07-28] MEDS: METOPROLOL TARTRATE 25 MG TABLET PO SCH ×2 (07:54→20:19)
[2017-07-28] MEDS: AcetaZOLAMIDE 250 MG TABLET PO SCH (07:54)
[2017-07-28] MEDS: MetroNIDAZOLE 500 MG TABLET PO SCH ×3 (07:54→20:18)
[2017-07-28] MEDS: PANTOPRAZOLE SODIUM 40 MG DR TABLET PO SCH ×2 (07:54→20:18)
[2017-07-28] MEDS: FUROSEMIDE 40 MG TABLET PO SCH (07:54)
[2017-07-28] MEDS: LACTOBAC ACID/BULG/BIFID/THERM TABLET PO SCH ×3 (07:55→20:17)
[2017-07-28] MEDS: LACTULOSE 20 GM/30 ML SOLUTION UDCUP PO SCH (07:55)
[2017-07-28] MEDS: OXYGEN THERAPY IH SCH ×2 (07:55→20:17)
[2017-07-28] MEDS: MINERAL OIL/PETROLATUM,WHITE PF 3.5 GM OPHTHALMIC OINTMENT OU SCH ×2 (07:55→20:18)
[2017-07-28] MEDS: DESONIDE 0.05% 15 GM CREAM TP SCH ×2 (07:55→20:18)
[2017-07-28] MEDS: ENOXAPARIN SODIUM 30 MG/0.3 ML PF SYRINGE SQ SCH ×2 (08:04→20:18)
[2017-07-28 08:20] VITALS: BP 125/69
[2017-07-28 11:33] LABS: BILIRUBIN,URINE NEGATIVE (NEGATIVE); GLUCOSE, URINE (UA) NEGATIVE (NEGATIVE); KETONES,URINE NEGATIVE (NEGATIVE); LEUKOCYTE ESTERASE ,URINE TRACE (NEGATIVE); NITRATE,URINE NEGATIVE (NEGATIVE); OCCULT BLOOD,URINE NEGATIVE (NEGATIVE); PROTEIN,URINE TRACE (NEGATIVE); UROBILINOGEN,URINE 0.2 mg/dL (<=1.0)
[2017-07-28 11:45] LABS: APPEARANCE,URINE HAZY (CLEAR); BACTERIA,URINE None Seen /HPF (None Seen); RBC,URINE None Seen /HPF (0-2); WBC,URINE 0-2 /HPF (0-5)
[2017-07-28 11:46] LABS: CALCIUM OXALATE CRYSTALS,UR Many /LPF (None Seen); SQUAMOUS EPITHELIAL CELL,UR Rare /LPF (None Seen)
[2017-07-28 15:15] VITALS: BP 104/64
[2017-07-28] MEDS ORDERED: TERA5 PO (18:24)
[2017-07-28] MEDS ORDERED: ATOR40TA28 PO (18:25)
[2017-07-28] MEDS ORDERED: METO25 PO (18:26)
[2017-07-28] MEDS ORDERED: PANT40TA25 PO (18:27)
[2017-07-28] MEDS ORDERED: PRED5 PO (19:52)
[2017-07-28] MEDS ORDERED: ACET250T27 PO (19:52)
[2017-07-28] MEDS ORDERED: FURO40 PO (19:55)
[2017-07-28] MEDS ORDERED: CLOP75 PO (19:56)
[2017-07-28 20:06] VITALS: BP 97/48
[2017-07-28] MEDS: TERAZOSIN HCL 5 MG CAPSULE PO SCH (20:17)
[2017-07-28] MEDS: TAMSULOSIN HCL 0.4 MG CAPSULE PO SCH (20:18)
[2017-07-28] MEDS: ATORVASTATIN CALCIUM 40 MG TABLET PO SCH (20:18)
[2017-07-28] MEDS ORDERED: LACT1CAP70 PO (21:02)
[2017-07-28] MEDS ORDERED: DESO515C TD (21:04)
[2017-07-28] MEDS ORDERED: LACT30L PO (21:06)
[2017-07-28] MEDS ORDERED: DICL4100G TP (21:06)
[2017-07-28] MEDS ORDERED: MINE3.5O29 OU (21:10)
[2017-07-28] MEDS ORDERED: NAPH1PAC2 PO (21:18)
[2017-07-29 02:36] VITALS: BP 100/64
[2017-07-29 07:10] VITALS: BP 128/75
[2017-07-29] MEDS: OXYGEN THERAPY IH SCH (08:34)
[2017-07-29] MEDS: DICLOFENAC SODIUM 1% 100 GM GEL [2GM] TP SCH (08:34)
[2017-07-29] MEDS: DESONIDE 0.05% 15 GM CREAM TP SCH (08:34)
[2017-07-29] MEDS: TIOTROPIUM BROMIDE 18 MCG/INH HANDIHALER [5] IH SCH (08:35)
[2017-07-29] MEDS: ENOXAPARIN SODIUM 30 MG/0.3 ML PF SYRINGE SQ SCH (08:35)
[2017-07-29] MEDS: MetroNIDAZOLE 500 MG TABLET PO SCH (08:35)
[2017-07-29] MEDS: ASPIRIN 81 MG CHEWABLE TABLET PO SCH (08:35)
[2017-07-29] MEDS: MINERAL OIL/PETROLATUM,WHITE PF 3.5 GM OPHTHALMIC OINTMENT OU SCH (08:35)
[2017-07-29] MEDS: AcetaZOLAMIDE 250 MG TABLET PO SCH (08:35)
[2017-07-29] MEDS: PANTOPRAZOLE SODIUM 40 MG DR TABLET PO SCH (08:35)
[2017-07-29] MEDS: POTASSIUM PHOS/SODIUM PHOS MIXTURE 1 POWDER PACKET PO SCH (08:35)
[2017-07-29] MEDS: LACTOBAC ACID/BULG/BIFID/THERM TABLET PO SCH (08:35)
[2017-07-29] MEDS: CLOPIDOGREL BISULFATE 75 MG TABLET PO SCH (08:36)
[2017-07-29] MEDS: PredniSONE 5 MG TABLET PO SCH (08:36)
[2017-07-29] MEDS: FUROSEMIDE 40 MG TABLET PO SCH (08:36)
[2017-07-29] MEDS: LACTULOSE 20 GM/30 ML SOLUTION UDCUP PO SCH (08:37)
[2017-07-29] MEDS: METOPROLOL TARTRATE 25 MG TABLET PO SCH (08:38)
[2017-07-29] MEDS ORDERED: TAMS0.4C32 PO (08:43)
== END 2017-07-29 10:10 | disposition home health service (06) | DRG 189 ==
LOC: 2WR 11:55 → UNDOADMIN 11:55 → 2WR 07-27 12:00
PROVIDERS: ADMIT Physical Medicine & Rehabilitation
DX: J96.11 Chronic respiratory failure with hypoxia (principal); E43 Unspecified severe protein-calorie malnutrition; I11.0 Hypertensive heart disease with heart failure; I50.9 Heart failure, unspecified; Z99.81 Dependence on supplemental oxygen; E66.2 Morbid (severe) obesity with alveolar hypoventilation; N39.0 Urinary tract infection, site not specified; Z68.41 Body mass index [BMI] 40.0-44.9, adult; J43.9 Emphysema, unspecified; I25.10 Atherosclerotic heart disease of native coronary artery without angina pectoris; H35.30 Unspecified macular degeneration; R53.81 Other malaise; E78.5 Hyperlipidemia, unspecified; L21.9 Seborrheic dermatitis, unspecified; B19.20 Unspecified viral hepatitis C without hepatic coma; F32.9 Major depressive disorder, single episode, unspecified; D64.9 Anemia, unspecified; N40.0 Benign prostatic hyperplasia without lower urinary tract symptoms; Z87.440 Personal history of urinary (tract) infections; I25.2 Old myocardial infarction; Z87.891 Personal history of nicotine dependence; Z74.01 Bed confinement status; Z82.49 Family history of ischemic heart disease and other diseases of the circulatory system
CPT/HCPCS: 71250; 82805; 83735; 84100; 84443; 87081; 87086; 87324; 87449; 90471; 93005; 93970; 97110; 97116; 97162; 97167; 97530; 97535; 99366; J1650; J3490; J7060